=== PATIENT | female | born 1980 | race Caucasian/White ===

== ENCOUNTER → 2024-02-22 | Day surgery (SDC) | payer OTHER | END | disposition home or self-care (01) | LOC: FMAMMOTONE 09:48 | PROVIDERS: ATTEND Internal Medicine | PROC: 0HBU3ZX Excision of Left Breast, Percutaneous Approach, Diagnostic (ICD-10-PCS; principal; 2024-02-22) | DX: N60.12 Diffuse cystic mastopathy of left breast (principal); N64.89 Other specified disorders of breast; R92.1 Mammographic calcification found on diagnostic imaging of breast | CPT/HCPCS: 19081; 76098-TC-FY; 87899; 88305-TC; A4648 ==

== ENCOUNTER → 2024-03-27 | Day surgery (SDC) | payer OTHER | END | disposition home or self-care (01) | LOC: JMAMMO-SUR 11:08 | PROVIDERS: ATTEND Surgery | PROC: 0H9U3ZX Drainage of Left Breast, Percutaneous Approach, Diagnostic (ICD-10-PCS; principal; 2024-03-27) | DX: N60.32 Fibrosclerosis of left breast (principal) | CPT/HCPCS: 19083; 76098-TC-FY; 77065-TC; 87899; 88305-TC; A4648 ==

== ENCOUNTER 2025-06-27 12:59 | Emergency (ER) | payer OTHER ==
[2025-06-27 13:07] VITALS: BP 144/84; PULSE 69; RESP 20; TEMP 98.4; BMI 26.5
[2025-06-27 13:51] LABS: EPI CELLS >36 /uL (0-25.1); HCG,QUALITATIVE URINE Negative; HYALINE CASTS 1 /uL (0-3.1); URINE APPEARANCE CLOUDY; URINE BACTERIA 587 /uL (0-1359); URINE BILIRUBIN NEGATIVE (NEGATIVE); URINE COLOR YELLOW; URINE GLUCOSE (UA) NEGATIVE (NEGATIVE); URINE KETONE NEGATIVE (NEGATIVE); URINE LEUK ESTERASE 2+ (NEGATIVE); URINE NITRITE NEGATIVE (NEGATIVE); URINE PROTEIN NEGATIVE (NEGATIVE); URINE RBC 15 /uL (0-23.9); URINE UROBILINOGEN 0.2 mg/dL (0.2-1.0); URINE WBC 82 /uL (0-25.8)
[2025-06-27] MEDS ORDERED: FLUCONAZOLE 150 MG TABLET PO ONE (13:57)
[2025-06-27] MEDS ORDERED: DOXYCYCLINE HYCLATE 100 MG TABLET PO ONE (14:03)
[2025-06-27] MEDS: WATER IM ONE (14:13)
[2025-06-27] MEDS: CEFTRIAXONE IM ONE (14:13)
[2025-06-27] MEDS: FLUCONAZOLE 150 MG TABLET PO ONE (14:13)
[2025-06-27] MEDS: DEXTROSE 5% IM ONE (14:13)
[2025-06-27] MEDS: DOXYCYCLINE HYCLATE 100 MG TABLET PO ONE (14:13)
[2025-06-27 15:23] LABS: HCV DIAGNOSTIC IN-HOUSE W/RFLX NON-REACTIVE (NONREACTIVE)
[2025-06-27 15:24] LABS: HIV INTERPRETATION NEGATIVE (NEGATIVE)
== END 2025-06-27 14:30 | disposition home or self-care (01) ==
LOC: JER 12:59
DX: N89.8 Other specified noninflammatory disorders of vagina (principal); R30.0 Dysuria; L29.2 Pruritus vulvae
CPT/HCPCS: 36415; 81003; 84703; 86803; 87070; 87077; 87086; 87205; 87389; 87491; 87591; 87661; 99284-25